=== PATIENT | female | born 1975 | race Asian ===

== ENCOUNTER 2016-12-12 08:48 | Outpatient (CLI) | payer OTHER | END 2016-12-12 08:49 | disposition home or self-care (01) | LOC: SC 08:48 | PROVIDERS: ATTEND Internal Medicine Pulmonary Disease | DX: R51 Headache (principal); R06.83 Snoring | CPT/HCPCS: 99203; 99212 ==

== ENCOUNTER 2017-01-31 20:04 | Outpatient (CLI) | payer OTHER | END 2017-01-31 20:05 | disposition home or self-care (01) | LOC: SC 20:04 | PROVIDERS: ATTEND Internal Medicine Pulmonary Disease | DX: G47.33 Obstructive sleep apnea (adult) (pediatric) (principal) | CPT/HCPCS: 95810 ==

== ENCOUNTER 2017-02-27 08:58 | Outpatient (CLI) | payer OTHER | END 2017-02-27 08:59 | disposition home or self-care (01) | LOC: SC 08:58 | PROVIDERS: ATTEND Nurse Practitioner Family | DX: G47.33 Obstructive sleep apnea (adult) (pediatric) (principal) | CPT/HCPCS: 99212; 99214 ==

== ENCOUNTER 2017-05-01 09:57 | Outpatient (CLI) | payer OTHER | END 2017-05-01 09:58 | disposition home or self-care (01) | LOC: SC 09:57 | PROVIDERS: ATTEND Nurse Practitioner Family | DX: G47.33 Obstructive sleep apnea (adult) (pediatric) (principal) | CPT/HCPCS: 99212; 99214 ==

== ENCOUNTER 2017-07-31 08:59 | Outpatient (CLI) | payer OTHER | END 2017-07-31 09:00 | disposition home or self-care (01) | LOC: SC 08:59 | PROVIDERS: ATTEND Nurse Practitioner Family | DX: G47.33 Obstructive sleep apnea (adult) (pediatric) (principal) | CPT/HCPCS: 99212; 99213 ==

== ENCOUNTER 2018-01-16 09:17 | Outpatient (CLI) | payer OTHER ==
--- NOTE | 2018-01-17 11:05 | Mammography Report ---
Reason: SCREENING MAMMO Procedure Date: 01/16/2018 Accession Number: [id number] / [id number] Procedure: MGN - Screening Mammo Dig Bilat CPT Code: FULL RESULT: EXAM: Screening Mammo Dig Bilat DATE: 01/16/2018 9:42 AM CLINICAL HISTORY: 42 year-old nulliparous female with history of early menses. TECHNIQUE: Bilateral CC, laterally exaggerated CC, MLO views were obtained. COMPARISON: 12/22/2015. FINDINGS: The breasts demonstrate heterogeneously dense fibroglandular parenchyma bilaterally. No suspicious masses, clustered microcalcifications, or regions of architectural distortion are identified. IMPRESSION: Negative examination RECOMMENDATION: Routine annual screening unless otherwise clinically indicated. BIRADS CATEGORY 1: Negative STANDARD QUALIFYING STATEMENTS: 1. This examination was reviewed with the aid of Computer-Aided Detection (CAD). 2. A negative or benign imaging report should not delay biopsy if clinically suspicious findings are present. Consider surgical consultation if warrented. More than 5% of cancers are not identified by imaging. 3. Dense breasts may obscure an underlying neoplasm. 4. This examination was reviewed without the aid of 3D breast imaging (tomosynthesis).
== END 2018-01-16 09:18 | disposition home or self-care (01) ==
LOC: DI.N 09:17
DX: Z12.31 Encounter for screening mammogram for malignant neoplasm of breast (principal)
CPT/HCPCS: 77067

== ENCOUNTER 2018-05-22 10:15 | Outpatient (CLI) | payer OTHER | END 2018-05-22 10:16 | disposition home or self-care (01) | LOC: SC 10:15 | PROVIDERS: ATTEND Nurse Practitioner Family | DX: G47.33 Obstructive sleep apnea (adult) (pediatric) (principal) | CPT/HCPCS: 99212; 99213 ==

== ENCOUNTER 2019-01-28 10:16 | Outpatient (CLI) | payer OTHER ==
--- NOTE | 2019-01-29 09:02 | Mammography Report ---
Reason: SCREENING MAMMO Procedure Date: 01/28/2019 Accession Number: [id number] / [id number] Procedure: MGN - Screening Mammo Dig Bilat CPT Code: Final Report FULL RESULT: EXAM: Screening Mammo Dig Bilat DATE: 01/28/2019 10:45 AM CLINICAL HISTORY: Screening encounter. History of nulliparity. History of early menses. TECHNIQUE: (B) - Bilateral CC, laterally exaggerated CC, MLO views were obtained. COMPARISON: 01/16/2018 and 12/22/2015. PARENCHYMAL PATTERN: (D) - The breast(s) demonstrate(s) heterogeneously dense fibroglandular parenchyma. FINDINGS: There are no suspicious masses, calcifications, or areas of distortion. IMPRESSION: Negative examination. BI-RADS category 1. RECOMMENDATION: (ANNUAL) - Recommend routine annual screening mammography. BI-RADS CATEGORY: (1) - Negative. STANDARD QUALIFYING STATEMENTS: 1. This examination was not reviewed with the aid of Computer-Aided Detection (CAD). 2. A negative or benign imaging report should not preclude biopsy if clinically suspicious findings are present. 3. Dense breasts may obscure an underlying neoplasm. 4. This examination was reviewed without the aid of 3D breast imaging (tomosynthesis).
== END 2019-01-28 10:17 | disposition home or self-care (01) ==
LOC: DI.N 10:16
DX: Z12.31 Encounter for screening mammogram for malignant neoplasm of breast (principal)
CPT/HCPCS: 77067

== ENCOUNTER 2019-07-08 10:28 | Outpatient (CLI) | payer OTHER ==
--- NOTE | 2019-07-08 09:57 | SLEEP CARE CONSULTATION ---
Information from patient questionnaire entered by Mónica Lombardo. I have reviewed and concur with the information entered by Mónica Lombardo. This document represents the service I personally performed and the decisions made by me, Gabriela Akhtar, RN, MSN, [employer]. History of Present Illness Service Date and Time: 07/08/2019929 Previous diagnosis: Mild, Obstructive Sleep Apnea-Hypopnea Syndrome AHI: 5.2 Reason for follow up: annual Equipment type: CPAP Equipment obtained from: [employer] (getting supplies as needed) Mask style: Nasal Mask brand: Respironics (Dreamwear) Backup mask available: Yes Last cushion change: 2 weeks ago CPAP Compliance Data - Data Reviewed with Patient Average duration of nightly device use: 6h 22m Compliance rate %: 95.6 Current pressure setting (cmH2O): 7-10 Heated hose settin Average residual AHI: 1.5 Average large leak: 18s Subjective Patient concerns: reports: nasal congestion (sometimes runny nose and dry throat that occurs 1 time a week ), dry mouth, nose, throat (dry throat as noted ), other (She takes off the last hour of sleep when getting up to the bathroom.). denies: aerophagia, mask discomfort, air blowing in eyes, mask leak noise, condensation in mask/hose, epistaxis Observed to snore while using device: No Current pressure setting perceived as: comfortable On therapy, patient: reports: sleeping better, awakening more refreshed, being more awake and alert during the day, more rested overall, other. denies: drowsiness while driving Initial Glover Sleepiness Scale score: 8 Current Glover Sleepiness Scale score: 7 Allergies and Home Medications Home medication list reviewed: No (no changes stated) Review of Systems Review of systems same as previous: Yes Physical Exam Height: 4 ft 10 in Weight: 111 lb (at [facility] visit a week ago) Body Mass Index: 23.1 BMI Classification: Healthy weight Impression and Plan 1. Obstructive Sleep Apnea-Hypopnea Syndrome, mild, with good treatment compliance and good apnea control. On CPAP therapy, the patient has better sleep quality and is more rested overall. Patient states she is very pleased with be nefit of CPAP. She is also getting her CPAP supplies as needed by [employer]. Nasal rhinorrhea that could be due to dryness of air as well as throat dryness can be reduced with increasing the CPAP humidity as shown on sample device and or reducing the heated hose and can be increased if condensation. In addition, can use saline nasal spray as needed for any daytime nasal dryness or to wash off nasal allergens. A steamy shower at night before CPAP can also wash allergens Which patient already does. I also explained the importance of using CPAP even the last hour of sleep for maximum benefit of treatment. In addition, there is more REM at late sleep time and increased risk of apnea. Patient's apnea severity and rationale for treatment to reduce apnea, improve sleep quality and reduce hypertension, cardiovascular and cerebrovascular events was reviewed. Symptoms to report for earlier follow up discussed. * Continue CPAP pressure at 7-10 cmH2O * Implement methods to reduce dryness symptoms * Use CPAP with all sleep. * Notify me if snoring with mask or feeling that the pressure is too much or too little * Attempt to lose weight * Call this office if any problems using CPAP * Return for follow up in 1 year , or sooner if concerns arise Visit Type: Telehealth Video (to minimize COVId 19 exposure.) Video Type: Artklikk Patient Location: Home Location of Provider: Home Patient agrees and consents to this telehealth visit type: Yes Patient agrees to have their insurance billed: Yes Time Spent with Patient (minutes): 20 Provider Statement: I spent 100% of the Telehealth Video Call with the patient with greater than 50% spent counseling the patient and coordination of care.
== END 2019-07-08 10:29 | disposition home or self-care (01) ==
LOC: SC 10:28
PROVIDERS: ATTEND Nurse Practitioner Family
DX: G47.33 Obstructive sleep apnea (adult) (pediatric) (principal)

== ENCOUNTER 2020-05-18 14:26 | Outpatient (CLI) | payer OTHER ==
--- NOTE | 2020-05-19 11:34 | Mammography Report ---
BILATERAL DIGITAL SCREENING MAMMOGRAM 3D/2D: 05/18/2020 CLINICAL: Routine screening. Comparison is made to exams dated: 01/28/2019 mammogram, 01/16/2018 mammogram, and 12/22/2015 mammogr am - [facility]. The tissue of both breasts is heterogeneously dense. This may low er the sensitivity of mammography. No significant masses, calcifications, or other findings are seen in either breast. There has been no significant interval change. IMPRESSION: NEGATIVE There is no mammographic evidence of malignancy. A 1 year screening mammogram is recommended. This exam was interpreted at Station ID: [id number]. NOTE: For mammograms, a report in lay terms will be sent to the patient. Approximately 15% of breast malignancies will not be visualized mammographically. In the management of a palpable breast mass, a negative mammogram must not discourage biopsy of a clinically suspicious lesion. Electronically Signed By: Akshat Granado M.D. [email or web address]:05/18/2020 15:01:39 ACR BI-RADS Category 1: Negative 3341F PARENCHYMAL PATTERN: (D) - The breast(s) demonstrate(s) heterogeneously dense fibroglandular haven avila. BI-RADS CATEGORY: (1) - 1 RECOMMENDATION: (ANNUAL) - Recommend routine annual screening mammography. [id number] 1 year screening LATERALITY: (B)
== END 2020-05-18 14:27 | disposition home or self-care (01) ==
LOC: DI.N 14:26
DX: Z12.31 Encounter for screening mammogram for malignant neoplasm of breast (principal)

== ENCOUNTER 2020-07-07 08:44 | Outpatient (CLI) | payer OTHER ==
--- NOTE | 2020-07-07 09:17 | SLEEP CARE CONSULTATION ---
Information from patient questionnaire entered by Jennifer Phillip. I have reviewed and concur with the information entered by Jennifer Phillip. This document represents the service I personally performed and the decisions made by , Marifer Morejon ARNP. History of Present Illness Service Date and Time: 07/07/2020 0844 Previous diagnosis: Mild, Obstructive Sleep Apnea-Hypopnea Syndrome AHI: 5.2 (in 2017) Reason for follow up: annual (last seen 06/2019) Equipment type: CPAP Equipment obtained from: [employer] (getting supplies as needed) Mask style: Nasal Mask brand: Respironics Backup mask available: Yes (old mask) Last cushion change: last week Prior sleep studies: Yes Year and Where: 2017 - [facility] Type of Sleep Study: Polysomnography HPI additional information: LUCAS HONG was diagnosed to have mild, AHI 5.2, obstructive sleep apnea-hypopnea syndrome and returned today for CPAP therapy annual follow-up. CPAP Compliance Data - Data Reviewed with Patient Average duration of nightly device use: 7 hr 18 min Compliance rate %: 97.8 (180 days) Current pressure setting (cmH2O): 7-10 Humidity settin Heated hose settin Average residual AHI: 1.6 Average large leak: 23 sec Subjective Missed days of use due to: reports: travel Patient concerns: reports: nasal congestion (morning only; nothing new). denies: aerophagia, mask discomfort, air blowing in eyes, mask leak noise, condensation in mask/hose, dry mouth, nose, throat, epistaxis, other Observed to snore while using device: No Current pressure setting perceived as: comfortable On therapy, patient: reports: sleeping better, awakening more refreshed, being more awake and alert during the day, more rested overall. denies: drowsiness while driving Initial [place]rich Sleepiness Scale score: 8 (in 2017) Current [place]rich Sleepiness Scale score: 8 Allergies and Home Medications Home medication list reviewed: Yes Allergy and home medication list: Metformin Atorvastatin OTC cetirizine Vitamin D Review of Systems Review of systems same as previous: Yes (no changes) Physical Exam Heart Rate: 75 O2 Saturation: 98 Height: 4 ft 10 in Weight: 113 lb Body Mass Index: 23.6 BMI Classification: Healthy weight Impression and Plan 1. Obstructive Sleep Apnea-Hypopnea Syndrome, mild, with good treatment co mpliance and good apnea control. On CPAP therapy, the patient has better sleep quality and is more rested overall. Lucas gets some mild skin irritation on the sides of her nose from the mask. She states this has been happening since she started using the CPAP. I advised her to use a very small amount of petroleum jelly on side of nose to create barrier for her skin. She may also obtain a mask liner to use as barrier to reduce skin irritation. She voiced understanding. She also has some nasal congestion in the morning that clears during her morning shower. She denies any nasal congestion when using the CPAP at night. She had no other concerns or issues and is doing very well with her treatment. She has significant improvement of her sleep apnea and is satisfied with her treatment at this time. Patient is at a healthy weight and was advised to continue to maintain this with good diet and exercise. Patient voiced understanding and agreement. Patient's apnea severity and rationale for treatment to reduce apnea, improve sleep quality and reduce cardiovascular and cerebrovascular events was reviewed. I also reviewed the benefit of consistent device use of CPAP for pre- diabetes. * Continue auto CPAP pressure at 7-10 cmH2O * Notify me if snoring with mask or feeling that the pressure is too much or too little * Maintain a healthy weight * Call this office if any problems using CPAP * Return for follow up in 1 year, or sooner if concerns arise Counseling Topics: Spare mask, Weight control Visit Type: In Office Time Spent with Patient (minutes): 16 Provider Statement: I spent 100% of the Face to Face Visit with the patient with greater than 50% spent counseling the patient and coordination of care.
== END 2020-07-07 08:45 | disposition home or self-care (01) ==
LOC: SC 08:44
PROVIDERS: ATTEND Nurse Practitioner Family
DX: G47.33 Obstructive sleep apnea (adult) (pediatric) (principal)
CPT/HCPCS: 99212

== ENCOUNTER 2023-07-04 06:15 | Day surgery (SDC) | payer OTHER ==
[2023-07-04] MEDS: LACTATED RINGERS 1,000 ML IV ONE ×2 (06:25→07:54)
[2023-07-04 06:37] VITALS: O2SAT 100
[2023-07-04 07:24] LABS: HCG UR QUAL NEGATIVE
[2023-07-04] MEDS ORDERED: PROPOFOL 500 MG/50 ML 500 MG/50 ML VIAL ONE (07:27)
--- NOTE | 2023-07-04 07:44 | ANESTHESIA ---
Pre-Anesthesia VS, & Labs - Diagnosis screening - Procedure colonoscopy Vital Signs: Temp Pulse Resp BP Pulse Ox O2 Flow Rate 36.5 C 71 16 136/85 H 100 07/04/23 06:25 07/04/23 06:25 07/04/23 06:25 07/04/23 06:25 07/04/23 06:25 Height: 4 ft 10 in Weight (kg): 47.4 kg Body Mass Index: 21.8 BMI Classification: Normal - NPO >8 hours - Is Patient ?: No - Lab Results Current Lab Results: Laboratory Tests 07/04/23 06:54: POC Whole Bld Glucose 94 Home Medications and Allergies Home Medications: Ambulatory Orders Atorvastatin [Lipitor] 10 mg PO DAILY 07/03/23 Metformin HCl [Metformin ER Osmotic] 500 mg PO DAILY 07/03/23 Metoprolol Succinate [Toprol Xl] 50 mg PO DAILY 07/03/23 Ascorbate Calcium [Vitamin C] 500 mg PO DAILY 05/27/14 Loratadine [Claritin] 10 mg DAILY 05/27/14 Meclizine HCl 25 mg PO TID PRN 05/27/14 Multivit with Calcium,Iron,Min [Women's Daily Multivitamin] 1 each PO DAILY 05/27/14 Atorvastatin [Lipitor] 10 mg PO DAILY 07/03/23 Metformin HCl [Metformin ER Osmotic] 500 mg PO DAILY 07/03/23 Metoprolol Succinate [Toprol Xl] 50 mg PO DAILY 07/03/23 Allergies/Adverse Reactions: Allergies Allergy/AdvReac Type Severity Reaction Status Date / Time No Known Drug Allergies Allergy Verified 05/27/14 15:07 Anes History & Medical History - Anesthetic History Anesthesia Complications: reports: No previous complications Family history of Anesthesia Complications: Denies Family history of Malignant Hyperthermia: Denies - Medical History Cardiovascular: reports: Hypertension, High cholesterol Pulmonary: reports: Sleep apnea Gastrointestinal: reports: GERD Urinary: reports: None Endocrine/Autoimmune: reports: Type 2 diabetes, Other Skin: reports: None Exam General: Alert, Oriented x3, Cooperative Dental: WNL Mouth Openin Fingerbreadth Neck Mobility: Normal Mallampati classification: II Thyromental Distance: 4-6 cm Respiratory: Lungs clear Cardiovascular: Regular rate Plan Anesthesia Type: General, Total IV Consent for Procedure(s) Verified and Reviewed: Yes Code Status: Attempt Resuscitation ASA classification: 2-Mild systemic disease Is this case an emergency?: No
[2023-07-04] MEDS ORDERED: GLYCOPYRROLATE 1 MG/5 ML VIAL ONE (07:48)
[2023-07-04 08:24] VITALS: BP 139/89
--- NOTE | 2023-07-04 09:43 | ANESTHESIA POST OP EVALUATION ---
Anesthesia Post Eval - Post Anesthesia Eval Vitals: Last Vital Signs Temp 36.1 C L 07/04/23 07:56 Pulse 82 07/04/23 08:17 Resp 17 07/04/23 08:17 BP 139/89 H 07/04/23 08:17 Pulse Ox 100 07/04/23 08:17 O2 Flow Rate CV Function Including HR & BP: Stable Pain Control: Satisfactory Nausea & Vomiting: Negative Mental Status: Baseline Respiratory Status: Airway Patent Hydration Status: Satisfactory Anesthesia Complications: None
== END 2023-07-04 06:16 | disposition home or self-care (01) ==
LOC: SDS 06:15
PROVIDERS: ATTEND Surgery
PROC: 0DBL8ZX Excision of Transverse Colon, Via Natural or Artificial Opening Endoscopic, Diagnostic (ICD-10-PCS; principal; 2023-07-04 07:30)
DX: Z12.11 Encounter for screening for malignant neoplasm of colon (principal); K63.5 Polyp of colon; I10 Essential (primary) hypertension; G47.33 Obstructive sleep apnea (adult) (pediatric); E11.9 Type 2 diabetes mellitus without complications; Z32.02 Encounter for pregnancy test, result negative; Z79.84 Long term (current) use of oral hypoglycemic drugs
CPT/HCPCS: 45380; 81025; J7120

== ENCOUNTER 2023-07-10 09:10 | Outpatient (CLI) | payer OTHER ==
--- NOTE | 2023-07-11 10:11 | Mammography Report ---
BILATERAL DIGITAL SCREENING MAMMOGRAM 3D/2D: 07/10/2023 CLINICAL: Routine screening. Comparison is made to exams dated: 01/24/2022 mammogram, 05/18/2020 mammogram, 01/28/2019 mammogram, 03/18/2017 mammogram, and 12/22/2015 mammogram - [facility]. Both breasts are heterogeneously dense, which may obscure small masses (category c / 51-75% glandular tissue). No significant masses, calcifications, or other findings are seen in either breast. There has been no significant interval change. IMPRESSION: NEGATIVE There is no mammographic evidence of malignancy. A 1 year screening mammogram is recommended. Based on the Tyrer Cuzick model (a risk assessment model) the patient's lifetime risk is 14.8% and he r 10 year risk is 3.0%. According to the ACR, ACS, and NCCN guidelines, an annual breast MRI exam briseida ng with mammogram is recommended if the patient's lifetime risk is 20% or greater. This exam was interpreted at Station ID: [id number]. NOTE: For mammograms, a report in lay terms will be sent to the patient. Approximately 15% of breast malignancies will not be visualized mammographically. In the management of a palpable breast mass, a negative mammogram must not discourage biopsy of a clinically suspicious lesion. Electronically Signed By: Alex [email or web address]:07/10/2023 10:07:32 letter sent: No_Letter ACR BI-RADS Category 1: Negative 3341F PARENCHYMAL PATTERN: (D) - The breast(s) demonstrate(s) heterogeneously dense fibroglandular haven avila. BI-RADS CATEGORY: (1) - 1 RECOMMENDATION: (ANNUAL) - Recommend routine annual screening mammography. [id number] 1 year screening LATERALITY: (B)
== END 2023-07-10 09:11 | disposition home or self-care (01) ==
LOC: DI.N 09:10
DX: Z12.31 Encounter for screening mammogram for malignant neoplasm of breast (principal); R92.333 Mammographic heterogeneous density, bilateral breasts